=== PATIENT | male | born 1955 | race Caucasian/White ===

== ENCOUNTER 2021-04-29 14:05 | Emergency (ER) | payer OTHER ==
[2021-04-29 14:33] VITALS: BP 111/68; PULSE 58; TEMP 98.5; BMI 29.8
== END 2021-04-29 14:50 | disposition home or self-care (01) ==
LOC: FER 14:05
DX: H10.9 Unspecified conjunctivitis (principal)
CPT/HCPCS: 99283-25

== ENCOUNTER 2021-09-12 11:39 | Emergency (ER) | payer OTHER ==
[2021-09-12 12:19] VITALS: BP 117/68; PULSE 70; TEMP 98.7; BMI 28.3
== END 2021-09-12 12:25 | disposition home or self-care (01) ==
LOC: FER 11:39
DX: H10.33 Unspecified acute conjunctivitis, bilateral (principal)
CPT/HCPCS: 99283-25